=== PATIENT | male | born 1960 | race Caucasian/White ===

== ENCOUNTER 2022-06-15 12:02 | Inpatient (IN) ==
[2022-06-15 13:48] LABS: Basophils # 0.1 10*3/uL (0.0-0.2); Basophils % 0.8 % (0.0-0.8); Eosinophils # 0.3 10*3/uL (0.0-0.87); Eosinophils % 4.7 % (0.00-10.9); Hematocrit 27.8 VOL% (42.0-52.0); Hemoglobin 8.6 GM/DL (14.0-18.0); Immature Granulocytes % 0.7 %; Immature Granulocytes Absolute 0.04 #; Lymphocytes # 0.9 10*3/uL (1.4-4.0); Lymphocytes % 14.1 % (21.2-54.2); Mean Corpuscular HGB Conc 30.9 GM/DL (32-36); Mean Corpuscular Volume 86.9 FL (87-102); Mean Platelet Volume 12.9 FL (9.6-12.0); Monocytes # 0.5 10*3/uL (0.11-0.8); Monocytes % 8.8 % (1.7-12.7); Neutrophils % 70.9 % (38.7-73.9); Platelet Count 275 T/CUMM (130-400); Red Cell Distribution Width 17.8 % (9.3-17.3); White Blood Count 6.1 T/CUMM (4-12)
[2022-06-15 14:04] LABS: INR 1.2; PT Patient Result 12.8 SECS (10.1-12.1)
[2022-06-15 15:24] LABS: Albumin 2.6 G/DL (3.4-5.0); Bilirubin,Total 0.4 MG/DL (0.20-1.00); Calcium 8.4 MG/DL (8.5-10.1); Total Protein 7.3 G/DL (6.4-8.2)
[2022-06-15 15:32] LABS: Potassium 7.3 MMOL/L (3.5-5.1)
[2022-06-15] MEDS ORDERED: INSULIN REGULAR 100 UNIT/ML IV STA (15:33)
[2022-06-15] MEDS ORDERED: CALCIUM CHLORIDE 1,000 MG/10 ML SYRINGE IV STA (15:33)
[2022-06-15] MEDS ORDERED: DEXTROSE 50% 25 GM/50 ML VIAL IV STA (15:33)
[2022-06-15] MEDS ORDERED: SODIUM BICARBONATE 50 MEQ/50 ML VIAL IV STA (15:33)
[2022-06-15] MEDS ORDERED: FUROSEMIDE 40 MG/4 ML VIAL IV STA (15:34)
[2022-06-15] MEDS ORDERED: DEXTROSE 50% 25 GM/50 ML SYRINGE IV STA (15:38)
[2022-06-15] MEDS ORDERED: SODIUM BICARBONATE 10 MEQ/10 ML SYRINGE IV ONE (15:59)
[2022-06-15 16:48] LABS: ABG Base Excess -15.1 MMOL/L (-2.5-2.5); ABG HCO3 12.7 MMOL/L (20-26); ABG PCO2 22.8 MM HG (35-48); ABG PH 7.274 (7.35-7.45); ABG PO2 83.1 MM HG (80-95)
[2022-06-15] MEDS ORDERED: GLUCAGON 1 MG VIAL IM PRN (17:10)
[2022-06-15] MEDS ORDERED: DEXTROSE 10% 250 ML BAG IV PRN (17:10)
[2022-06-15] MEDS ORDERED: ACETAMINOPHEN 325 MG TABLET PO PRN (17:10)
[2022-06-15] MEDS ORDERED: hydrALAZINE 20 MG/1 ML VIAL IV PRN (17:10)
[2022-06-15] MEDS ORDERED: ONDANSETRON 4 MG/2 ML VIAL IV PRN (17:10)
[2022-06-15 17:52] LABS: Hepatitis B Core IgM Quant 0.06 Index; Hepatitis B Surface Ag Quant < 0.10 Index; Hepatitis B Surface Ag Result Non-Reactive (NonReactive); Hepatitis C Virus Ab Quant 0.08 Index; Hepatitis C Virus Ab Result Non-Reactive (NonReactive)
[2022-06-15] MEDS ORDERED: HEPARIN 10,000 UNIT/10 ML VIAL IV SCH (21:00)
[2022-06-15] MEDS: SODIUM ZIRCONIUM CYCLOSILICATE 10 GM PACK PO SCH (21:54)
[2022-06-15 23:12] LABS: Calcium 8.4 MG/DL (8.5-10.1); Osmolality,Calculated 349.7 MOS/KG (273-304); Potassium 5.8 MMOL/L (3.5-5.1)
[2022-06-16] MEDS ORDERED: DEXTROSE 10% 250 ML BAG IV ONE (00:30)
[2022-06-16] MEDS ORDERED: SODIUM POLYSTYRENE SULFATE 15 GM/60 ML BOTTLE PO ONE (00:30)
[2022-06-16 05:57] LABS: Basophils % 0.5 % (0.0-0.8); Eosinophils # 0.4 10*3/uL (0.0-0.87); Eosinophils % 4.5 % (0.00-10.9); Hematocrit 25.8 VOL% (42.0-52.0); Hemoglobin 8.2 GM/DL (14.0-18.0); Immature Granulocytes % 0.5 %; Immature Granulocytes Absolute 0.04 #; Lymphocytes # 0.6 10*3/uL (1.4-4.0); Lymphocytes % 7.7 % (21.2-54.2); Mean Corpuscular HGB Conc 31.8 GM/DL (32-36); Mean Corpuscular Volume 84.3 FL (87-102); Mean Platelet Volume 11.6 FL (9.6-12.0); Monocytes # 0.4 10*3/uL (0.11-0.8); Monocytes % 5.7 % (1.7-12.7); Neutrophils % 81.1 % (38.7-73.9); Platelet Count 225 T/CUMM (130-400); Red Blood Count 3.06 MC/CUMM (3.8-5.5); Red Cell Distribution Width 17.6 % (9.3-17.3); White Blood Count 7.8 T/CUMM (4-12)
[2022-06-16 06:30] LABS: Phosphorous 8.4 MG/DL (2.5-4.9); Uric Acid 8.5 MG/DL (3.5-7.2)
[2022-06-16 06:40] LABS: Calcium 8.4 MG/DL (8.5-10.1); Osmolality,Calculated 353.7 MOS/KG (273-304); Potassium 5.5 MMOL/L (3.5-5.1); Risk Ratio 2.85; Thyroid Stimulating Hormone 2.41 uIU/ml (0.358-3.74); VLDL Cholesterol 17.6 MG/DL
[2022-06-16 07:00] LABS: Parathyroid Hormone Intact 299.6 PG/ML (18.4-80.1)
[2022-06-16] MEDS: amLODIPine 10 MG TABLET PO SCH (08:22)
[2022-06-16] MEDS: PANTOPRAZOLE 40 MG TABLET PO SCH (08:22)
[2022-06-16] MEDS: ASCORBIC ACID 500 MG TABLET PO SCH (08:22)
[2022-06-16] MEDS: SODIUM ZIRCONIUM CYCLOSILICATE 10 GM PACK PO SCH ×3 (08:22→23:30)
[2022-06-16] MEDS: THIAMINE 100 MG TABLET PO SCH (08:23)
[2022-06-16 08:52] LABS: Bacteria,Urine Many /HPF (Few); Bilirubin,Urine Negative (Negative); Blood, Urine Negative (Negative); Glucose,Urine (UA) Negative (Negative); Ketones,Urine 5 mg/dL (Negative); Nitrite,Urine Negative (Negative); Protein,Urine 100 mg/dL (Negative); RBC,Urine 13 /HPF (0-4); Urine Appearance CLOUDY (Clear); Urine Color Yellow (Yellow); Urine Urobilinogen < 2.0 eU/dL (<2.0)
[2022-06-16] MEDS ORDERED: GLUCAGON 1 MG VIAL IM PRN (09:15)
[2022-06-16] MEDS ORDERED: DEXTROSE 10% 250 ML BAG IV PRN (09:15)
[2022-06-16] MEDS: SODIUM BICARBONATE 50 MEQ/50 ML VIAL IV ONE ×2 (09:22→09:48)
[2022-06-16] MEDS ORDERED: SODIUM BICARBONATE 50 MEQ/50 ML SYRINGE IV ONE (12:00)
[2022-06-16] MEDS: SODIUM BICARBONATE 650 MG TABLET PO SCH (23:30)
[2022-06-17 05:43] LABS: Basophils % 0.2 % (0.0-0.8); Eosinophils # 0.1 10*3/uL (0.0-0.87); Eosinophils % 0.4 % (0.00-10.9); Hematocrit 24.7 VOL% (42.0-52.0); Hemoglobin 7.9 GM/DL (14.0-18.0); Immature Granulocytes % 0.4 %; Immature Granulocytes Absolute 0.05 #; Lymphocytes # 0.7 10*3/uL (1.4-4.0); Lymphocytes % 5.8 % (21.2-54.2); Mean Corpuscular Volume 85.2 FL (87-102); Mean Platelet Volume 12.3 FL (9.6-12.0); Monocytes # 0.9 10*3/uL (0.11-0.8); Monocytes % 7.6 % (1.7-12.7); Neutrophils % 85.6 % (38.7-73.9); Platelet Count 189 T/CUMM (130-400); Red Cell Distribution Width 17.6 % (9.3-17.3); White Blood Count 11.6 T/CUMM (4-12)
[2022-06-17 06:01] LABS: Calcium 8.2 MG/DL (8.5-10.1); Osmolality,Calculated 335.1 MOS/KG (273-304); Potassium 4.2 MMOL/L (3.5-5.1)
[2022-06-17] MEDS ORDERED: cefTRIAXone 1,000 MG in SODIUM CHLORIDE 0.9% 100 ML IV SCH (08:00)
[2022-06-17] MEDS: SEVELAMER CARBONATE 800 MG TABLET PO SCH ×3 (11:01→21:31)
[2022-06-17] MEDS: SODIUM BICARBONATE 650 MG TABLET PO SCH ×2 (12:29→22:15)
[2022-06-17] MEDS: ASCORBIC ACID 500 MG TABLET PO SCH (12:30)
[2022-06-17] MEDS: amLODIPine 10 MG TABLET PO SCH (12:30)
[2022-06-17] MEDS: PANTOPRAZOLE 40 MG TABLET PO SCH (12:30)
[2022-06-17] MEDS: THIAMINE 100 MG TABLET PO SCH (12:30)
[2022-06-17] MEDS ORDERED: NALOXONE 0.4 MG/ML VIAL IV ONE (16:25)
[2022-06-17] MEDS ORDERED: SODIUM BICARBONATE 50 MEQ/50 ML SYRINGE IV ONE (16:42)
[2022-06-17 16:47] LABS: Arterial Base Excess iSTAT -3 MMOL/L (-2.5-2.5); Arterial Bicarbonate iSTAT 19.3 MMOL/L (20-26); Arterial O2 Saturation iSTAT 96 % (95-100); Arterial PCO2 iSTAT 25 MM HG (35-48); Arterial PO2 iSTAT 72 MM HG (80-95); Arterial Total CO2 iSTAT 20 MMO/L (23-27); Arterial pH iSTAT 7.502 (7.35-7.45)
[2022-06-17] MEDS ORDERED: VANCOMYCIN INJ 750 MG in SODIUM CHLORIDE 0.9% 250 ML IV PRN (17:19)
[2022-06-17] MEDS ORDERED: EPOETIN ALFA-EPBX 10,000 UNIT/ML VIAL IV SCH (18:30)
[2022-06-17] MEDS: PIPERACILLIN/TAZOBACTAM 3,375 MG in SODIUM CHLORIDE 0.9% 100 ML IV SCH (21:31)
[2022-06-17] MEDS ORDERED: VANCOMYCIN INJ 2,000 MG in SODIUM CHLORIDE 0.9% 500 ML IV ONE (22:00)
[2022-06-18] MEDS ORDERED: MORPHINE 2 MG/1 ML SYRINGE IV PRN (07:14)
[2022-06-18] MEDS ORDERED: LORazepam 2 MG/1 ML VIAL IV PRN (07:14)
[2022-06-18] MEDS: PIPERACILLIN/TAZOBACTAM 3,375 MG in SODIUM CHLORIDE 0.9% 100 ML IV SCH (07:16)
[2022-06-18 16:07] VITALS: BP 140/67
== END 2022-06-18 16:08 | disposition hospice, home (50) | DRG 85 ==
LOC: N.ED 12:02 → N.EDINP 17:10 → N.TELES 19:08
PROVIDERS: ADMIT Internal Medicine; ATTEND Internal Medicine